=== PATIENT | female | born 2000 | race Caucasian/White ===

== ENCOUNTER → 2022-04-26 | Outpatient (CLI) | payer BC ==
[~2022-04-26] MED LIST: BENTYL 20MG TAB20 MG PO; IBUPROFEN600 MG PO; ZOFRAN4 MG PO
[2022-04-27 07:10] LABS: FSH 3.1 mIU/mL (.); LUTEINIZING HORMONE(LH) 7.7 mIU/mL (.); PROLACTIN 8.9 ng/mL (4.8-23.3); TESTOSTERONE, SERUM 91 ng/dL (13-71)
[2022-04-27 16:09] LABS: INSULIN 43.1 uIU/mL (2.6-24.9)
== END ==
LOC: LAB 11:02
PROVIDERS: Physician Assistant
DX: E28.2 Polycystic ovarian syndrome (principal)
CPT/HCPCS: 36415; 82627; 82947; 83001; 83002; 83036; 84146; 84403; 84443; 84702